=== PATIENT | male | born 2005 | race Caucasian/White ===

== ENCOUNTER 2023-05-22 17:03 | Outpatient (CLI) | payer OTHER, SELFPAY ==
--- NOTE | ~2023-05-22 | XR_ITS ---
XR knee RT 3V 05/22/2023 17:24 Indication: Right knee pain. Knee effusion. Procedure: 3 views right knee Comparison: No prior studies for comparison. Findings: There is anatomic alignment. No joint space narrowing. No fracture or traumatic malalignmen t. No joint effusion. Impression: 1: No acute bone or joint abnormality. Reviewed, dictated and finalized at location A. Impression: 1: No acute bone or joint abnormality.
== END 2023-05-22 17:04 | disposition home or self-care (01) ==
PROVIDERS: PCP Family Medicine; Visit Provider Family Medicine
DX: M25.461 Effusion, right knee (principal)
CPT/HCPCS: 73562